=== PATIENT | female | born 2000 | race Caucasian/White ===

== ENCOUNTER 2019-05-08 15:06 | Emergency (ER) | payer OTHER ==
[~2019-05-08] VITALS: Ht 175.3 cm; Wt 127.3 kg
[2019-05-08 15:07] VITALS: BP 145/93
[2019-05-08 15:25] LABS: BASO # 0.1 10^3/uL (0.0-0.2); BASO % 0.7 % (0.0-1.0); EOS # 0.2 10^3/uL (0.0-0.5); EOS % 1.9 % (0.0-3.0); HEMATOCRIT 42.7 % (36.0-47.0); HEMOGLOBIN 13.9 g/dl (12.0-15.5); LYMPH % 19.9 % (24.0-44.0); MEAN CORPUSCULAR HEMOGLOBIN 29.2 pg (27.0-33.0); MEAN CORPUSCULAR HGB CONC 32.6 g/dl (32.0-36.5); MEAN CORPUSCULAR VOLUME 89.7 fl (80.0-96.0); MONO # 0.7 10^3/uL (0.0-0.8); MONO % 7.1 % (0.0-5.0); NEUTROPHILS % 70.1 % (36.0-66.0); PLATELET COUNT, AUTOMATED 295 10^3/uL (150-450); RED BLOOD COUNT 4.76 10^6/uL (4.00-5.40)
== END 2019-05-08 16:18 | disposition home or self-care (01) ==
LOC: M ED 15:06
DX: N93.8 Other specified abnormal uterine and vaginal bleeding (principal); F17.200 Nicotine dependence, unspecified, uncomplicated

== ENCOUNTER 2019-06-19 13:41 | Emergency (ER) | payer OTHER ==
[~2019-06-19] VITALS: Ht 175.3 cm; Wt 129.5 kg
[2019-06-19 15:42] LABS: BASO # 0.1 10^3/uL (0.0-0.2); BASO % 0.6 % (0.0-1.0); EOS # 0.4 10^3/uL (0.0-0.5); EOS % 4.8 % (0.0-3.0); HEMATOCRIT 42.5 % (36.0-47.0); HEMOGLOBIN 13.3 g/dl (12.0-15.5); LYMPH # 1.7 10^3/uL (1.5-5.0); LYMPH % 21.1 % (24.0-44.0); MEAN CORPUSCULAR HEMOGLOBIN 28.7 pg (27.0-33.0); MEAN CORPUSCULAR HGB CONC 31.3 g/dl (32.0-36.5); MEAN CORPUSCULAR VOLUME 91.8 fl (80.0-96.0); MONO # 0.6 10^3/uL (0.0-0.8); MONO % 7.1 % (0.0-5.0); NEUTROPHILS # 5.4 10^3/uL (1.5-8.5); NEUTROPHILS % 66.2 % (36.0-66.0); PLATELET COUNT, AUTOMATED 246 10^3/uL (150-450); RED BLOOD COUNT 4.63 10^6/uL (4.00-5.40); WHITE BLOOD COUNT 8.2 10^3/uL (4.0-10.0)
[2019-06-19 16:07] LABS: ALBUMIN 3.6 GM/DL (3.2-5.2); ALT/SGPT 20 U/L (12-78); BILIRUBIN,DIRECT 0.1 MG/DL (0.0-0.2); BILIRUBIN,TOTAL 0.4 MG/DL (0.2-1.0); BLOOD UREA NITROGEN 13 MG/DL (7-18); CALCIUM LEVEL 8.4 MG/DL (8.5-10.1); CARBON DIOXIDE LEVEL 27 MEQ/L (21-32); CHLORIDE LEVEL 111 MEQ/L (98-107); CREATININE FOR GFR 0.83 MG/DL (0.55-1.30); GLUCOSE, FASTING 81 MG/DL (70-100); LIPASE 114 U/L (73-393); POTASSIUM SERUM 4.4 MEQ/L (3.5-5.1); SODIUM LEVEL 143 MEQ/L (136-145); TOTAL PROTEIN 6.6 GM/DL (6.4-8.2)
[2019-06-19 17:07] VITALS: BP 127/67
--- NOTE | 2019-06-20 07:45 | REP ---
PELVIC SONOGRAPHY: HISTORY: Bilateral pelvic pain. Late menses. FINDINGS: Transabdominal and transvaginal scanning are performed. Uterine dimensions are normal at 8.4 x 3.7 x 4.8 cm. Endometrial echo is 1.0 cm thick and centrally placed. No focal uterine mass is seen. There is a small quantity of physiologic fluid adjacent to the right ovary. Right ovarian dimensions are 4.7 x 3.3 x 2.9 cm. There is a 1.7 cm hypoechoic follicle cyst in the right ovary. Left ovary measures 2.9 x 1.9 x 3.2 cm. No left ovarian abnormality is seen. Doppler flow is present bilaterally in the ovaries. Resistive indices are 0.65 on the right and 0.64 on the left. IMPRESSION: Normal pelvic sonography. Electronically Signed by Andrea Leo MD 06/20/2019 08:55 A
== END 2019-06-19 17:22 | disposition home or self-care (01) ==
LOC: M ED 13:41
DX: R10.2 Pelvic and perineal pain (principal); N92.6 Irregular menstruation, unspecified; F17.200 Nicotine dependence, unspecified, uncomplicated

== ENCOUNTER 2019-07-19 19:46 | Emergency (ER) | payer OTHER ==
[~2019-07-19] VITALS: Ht 175.3 cm; Wt 129.9 kg
[2019-07-19 19:47] VITALS: BP 133/96
[2019-07-19] MEDS ORDERED: PENICILLIN V POTASSIUM 500 MG TAB PO ONE (21:30)
[2019-07-19] MEDS ORDERED: IBUPROFEN 600 MG TAB PO ONE (21:45)
[2019-07-19] MEDS ORDERED: IBUP-1022 PO (21:59)
[2019-07-19] MEDS ORDERED: PENI500T PO (21:59)
== END 2019-07-19 22:10 | disposition left against medical advice (07) ==
LOC: M ED 19:46
DX: R68.84 Jaw pain (principal); K08.89 Other specified disorders of teeth and supporting structures; J03.90 Acute tonsillitis, unspecified